=== PATIENT | male | born 1960 | race African-American/Black ===

== ENCOUNTER 2019-05-24 18:52 | Emergency (ER) | payer SELFPAY ==
[~2019-05-24] VITALS: Ht 185.4 cm; Wt 85.0 kg
[2019-05-24] MEDS ORDERED: QUET50TA PO (19:10)
[2019-05-24 20:25] VITALS: BP 118/74
== END 2019-05-24 20:26 | disposition home or self-care (01) ==
LOC: ER 18:52
DX: F10.129 Alcohol abuse with intoxication, unspecified (principal); Y90.9 Presence of alcohol in blood, level not specified
CPT/HCPCS: 99283